=== PATIENT | female | born 1980 | race Two or more races ===

== ENCOUNTER 2021-10-26 15:54 | Emergency (ER) | payer OTHER ==
[~2021-10-26] VITALS: Ht 154.9 cm; Wt 70.8 kg
[2021-10-26 17:32] LABS: Basophils # (auto) 0.1 10 ^3/uL (0-0.2); Basophils % (auto) 0.6 % (0.0-2.0); Eosinophils # (auto) 0 10 ^3/uL (0-0.8); Eosinophils % (auto) 0.2 % (0.0-7.0); Hematocrit 36.4 % (36.0-46.0); Lymphocytes # (auto) 1.1 10 ^3/uL (0.4-5.4); Lymphocytes % (auto) 10.2 % (10.0-50.0); Mean Corpuscular Hemoglobin 29.7 pg (28.0-32.0); Mean Corpuscular Hgb Conc. 33.1 g/dL (32.0-36.0); Mean Corpuscular Volume 89.7 fL (80.0-100.0); Monocytes # (auto) 0.5 10 ^3/uL (0-1.3); Monocytes % (auto) 4.3 % (0.0-12.0); Neutrophils # (auto) 9.4 10 ^3/uL (1.6-8.6); Neutrophils % (auto) 84.7 % (37.0-80.0); Red Blood Cells 4.05 10^6/uL (4.0-5.20); Red Cell Distribution Width 13.8 % (11.8-14.3); White Blood Cell 11.1 10^3/uL (4.4-10.8)
[2021-10-26 17:46] LABS: Albumin 3.5 g/dL (3.4-5.0); Calcium 8.8 mg/dL (8.5-10.1); Potassium 3.8 mmol/L (3.5-5.1)
[2021-10-26 17:49] LABS: BUN/Creatinine Ratio 15.7
[2021-10-26 17:51] LABS: Bilirubin, Total 0.4 mg/dL (0.2-1.0); Total Protein 7.4 g/dL (6.4-8.2)
[2021-10-26] MEDS ORDERED: IOHEXOL 350 MG/ML 100ML IJ ONE (18:53)
[2021-10-26 22:22] LABS: Urine Bacteria NONE SEEN /hpf (None Seen); Urine Blood 1+ /uL (Negative); Urine Mucus FEW (None Seen); Urine WBC 7 /hpf (0 - 5)
[2021-10-26 22:25] LABS: Urine Specific Gravity > 1.050 (1.001-1.035)
[2021-10-26] MEDS ORDERED: KETOROLAC TROMETH 30 MG/ML 1ML VIAL IV ONE (23:00)
[2021-10-26] MEDS ORDERED: metroNIDAZOLE 500MG/100ML 100 ML IV ONE (23:30)
[2021-10-26] MEDS ORDERED: LACTATED RINGER'S 1,000 ML IV ONE (23:30)
[2021-10-26] MEDS ORDERED: CEFEPIME 1 GM in SODIUM CHL 0.9% 50 ML IV ONE (23:30)
[2021-10-27 19:38] VITALS: BP 133/90
== END 2021-10-26 19:49 | disposition short-term general hospital (02) ==
LOC: ER 15:57
DX: N20.0 Calculus of kidney (principal); K56.600 Partial intestinal obstruction, unspecified as to cause; T81.9XXA Unspecified complication of procedure, initial encounter; Z20.822 Contact with and (suspected) exposure to COVID-19
CPT/HCPCS: 36415; 71045; 71260; 74177; 80053; 81001; 85025; 85379; 87426; 93005; 96365; 96375; 99285; C9803; J0692; J1885; J3490; Q9967; U0003